=== PATIENT | female | born 1965 | race Asian ===

== ENCOUNTER 2021-09-13 08:05 | Day surgery (SDC) | payer OTHER ==
[~2021-09-13] VITALS: Ht 157.2 cm; Wt 68.5 kg
[2021-09-13] MEDS ORDERED: LIDOCAINE 2% 100 MG/5 ML UJET TP ONE (09:43)
[2021-09-13] MEDS ORDERED: fentaNYL citrate 0.05 MG/ML VIAL ONE (09:43)
[2021-09-13] MEDS ORDERED: fentaNYL citrate 0.05 MG/ML VIAL IVP ONE (10:40)
== END 2021-09-13 09:53 | disposition home or self-care (01) ==
LOC: MOR 08:05 → MMU 08:12 → MOR 09:53
PROVIDERS: ATTEND Internal Medicine Gastroenterology
DX: Z12.11 Encounter for screening for malignant neoplasm of colon (principal); E78.00 Pure hypercholesterolemia, unspecified; Z79.899 Other long term (current) drug therapy; Z20.822 Contact with and (suspected) exposure to COVID-19
CPT/HCPCS: 45378; 87426; J3010

== ENCOUNTER 2022-07-30 20:32 | Emergency (ER) | payer OTHER ==
[~2022-07-30] VITALS: Ht 157.5 cm; Wt 71.2 kg
[2022-07-30 20:42] VITALS: BP 149/88
--- NOTE | 2022-07-30 22:43 | NUR ---
PT AMBULATED TO BED 3 WITH PARTNER
[2022-07-30] MEDS ORDERED: LIDOCAINE 1% 500 MG/ 50 ML VIAL INJ ONE (22:45)
--- NOTE | 2022-07-30 22:50 | NUR ---
INTERVIEWED PATIENT AND SPOUSE AT BEDSIDE, PATIENT WAS CUTTING A PINEAPPLE AND SLICED INTO HER OWN FINGER. PRESENTS TO ER FOR LACERATION REPAIR
[2022-07-30] MEDS ORDERED: LIDOCAINE MPF 1% 5 ML ONE (23:42)
[2022-07-31] MEDS ORDERED: ACET-10509 PO (00:23)
[2022-07-31] MEDS ORDERED: MUPI2CRE22 TP (00:23)
[2022-07-31] MEDS ORDERED: BACITRACIN OINT 500 UNITS/GM PKT TP ONE (00:33)
[2022-07-31 00:38] VITALS: BP 149/88
--- NOTE | 2022-07-31 00:38 | NUR ---
Patient discharged with v/s stable. Written and verbal after care instructions given and explained. Patient alert, oriented and verbalized understanding of instructions. Ambulatory with steady gait. All questions addressed prior to discharge. ID band removed. Patient advised to follow up with PMD. Rx of ACETAMINOPHEN AND MUPIROCIN CALCIUM given. Patient educated on indication of medication including possible reaction and side effects. Opportunity to ask questions provided and answered. DX: SUTURED WOUND CARE
== END 2022-07-31 00:38 | disposition home or self-care (01) ==
LOC: MED 20:32
DX: S61.214A Laceration without foreign body of right ring finger without damage to nail, initial encounter (principal); Z79.899 Other long term (current) drug therapy; Z79.2 Long term (current) use of antibiotics; W26.0XXA Contact with knife, initial encounter; Y93.89 Activity, other specified; Y92.89 Other specified places as the place of occurrence of the external cause; Y99.8 Other external cause status
CPT/HCPCS: 12001; 90471; 90715; 99283; J2001

== ENCOUNTER 2022-08-07 17:20 | Emergency (ER) | payer OTHER ==
[~2022-08-07] VITALS: Ht 152.4 cm; Wt 81.6 kg
[~2022-08-07 17:20] MED LIST: ACET-10509 PO; MUPI2CRE22 TP
[2022-08-07 17:33] VITALS: BP 144/86
--- NOTE | 2022-08-07 17:58 | NUR ---
R FINGER SUTURE REMOVAL, SEEN HERE LAST WEEK THURSDAY
[2022-08-07 18:33] VITALS: BP 144/86
--- NOTE | 2022-08-07 18:34 | NUR ---
Patient discharged with v/s stable. Written and verbal after care instructions given and explained. Patient verbalized understanding. Ambulatory with steady gait. All questions addressed prior to discharge. Advised to follow up with PMD.
== END 2022-08-07 18:33 | disposition home or self-care (01) ==
LOC: MED 17:20
DX: S61.215D Laceration without foreign body of left ring finger without damage to nail, subsequent encounter (principal); Z48.02 Encounter for removal of sutures; X58.XXXD Exposure to other specified factors, subsequent encounter
CPT/HCPCS: 99281